=== PATIENT | female | born 1960 | race Caucasian/White ===

== ENCOUNTER 2017-01-19 09:23 | Outpatient (CLI) | payer OTHER ==
[2017-01-19 18:36] LABS: HEMOGLOBIN A1C 0.53 g/dL
[2017-01-19 18:42] LABS: ALBUMIN/GLOBULIN RATIO 1.3 (1.0-2.2); BILIRUBIN,TOTAL 0.4 mg/dL (0.2-1.0); BUN - BLOOD UREA NITROGEN 23 mg/dL (6-20); CALCIUM 9.5 mg/dL (8.5-10.3); CARBON DIOXIDE - CO2 29 mmol/L (21-32); CHLORIDE 101 mmol/L (101-111); CHOL/HDL RATIO 3.4 (<4.4); CHOLESTEROL 163 mg/dL; GFR - MDRD 57 (>89); GLUCOSE 91 mg/dL (70-100); HDL CHOLESTEROL 48 mg/dL; LDL/HDL RATIO 1.4 (<4.4); POTASSIUM 4.6 mmol/L (3.5-5.0); SODIUM 139 mmol/L (135-145); TOTAL PROTEIN 6.9 g/dL (6.7-8.2); TRIGLYCERIDES 239 mg/dL; VLDL CHOLESTEROL 48 mg/dL
== END 2017-01-19 09:24 | disposition home or self-care (01) ==
LOC: LAB.F 09:23
PROVIDERS: ATTEND Family Medicine
DX: D64.9 Anemia, unspecified (principal); E11.9 Type 2 diabetes mellitus without complications; E78.5 Hyperlipidemia, unspecified; I10 Essential (primary) hypertension
CPT/HCPCS: 36415; 80053; 80061; 82043; 83036

== ENCOUNTER 2017-03-03 10:21 | Outpatient (CLI) | payer OTHER ==
[2017-03-03 18:03] LABS: BASOPHILS # (AUTO) 0.1 10^3/uL (0.0-0.1); EOSINOPHILS # (AUTO) 0.3 10^3/uL (0.0-0.7); EOSINOPHILS % (AUTO) 3.2 %; HCT - HEMATOCRIT 36.2 % (37.0-47.0); HGB - HEMOGLOBIN 11.8 g/dL (12.0-16.0); IMMATURE RETIC FRACTION 0.48; LYMPHOCYTES # (AUTO) 3.1 10^3/uL (1.5-3.5); LYMPHOCYTES % (AUTO) 30.3 %; MEAN CORPUSCULAR HEMOGLOBIN 28.3 pg (27.0-31.0); MEAN CORPUSCULAR HGB CONC 32.7 g/dL (32.0-36.0); MEAN CORPUSCULAR VOLUME 86.7 fL (81.0-99.0); MONOCYTES # (AUTO) 0.7 10^3/uL (0.0-1.0); MONOCYTES % (AUTO) 7.2 %; NEUTROPHILS # (AUTO) 5.9 10^3/uL (1.5-6.6); NEUTROPHILS % (AUTO) 58.3 %; NUCLEATED RED BLOOD CELLS AUTO 0.2 /100WBC; RED BLOOD COUNT 4.17 10^6/uL (4.20-5.40); RED CELL DISTRIBUTION WIDTH 15.2 % (12.0-15.0); UNCORRECTED WHITE BLOOD COUNT 10.1 x10^3/uL; WHITE BLOOD COUNT 10.1 x10^3/uL (4.8-10.8)
[2017-03-03 18:38] LABS: IRON 43 ug/dL (28-170); TOTAL IRON BINDING CAPACITY 484 ug/dL (250-450); TRANSFERRIN 346 mg/dL (192-382)
[2017-03-03 18:54] LABS: FERRITIN 13.9 ng/mL (11.0-306.8)
== END 2017-03-03 10:22 | disposition home or self-care (01) ==
LOC: LAB.F 10:21
PROVIDERS: ATTEND Internal Medicine
DX: E11.9 Type 2 diabetes mellitus without complications (principal); D64.9 Anemia, unspecified
CPT/HCPCS: 36415; 82043; 82607; 82728; 82746; 83540; 84466; 85025; 85044

== ENCOUNTER 2017-06-30 08:58 | Outpatient (CLI) | payer OTHER ==
[2017-06-30 18:04] LABS: CALCIUM 9.6 mg/dL (8.5-10.3); CREATININE 1.2 mg/dL (0.4-1.0); POTASSIUM 4.2 mmol/L (3.5-5.0)
[2017-06-30 18:42] LABS: HEMOGLOBIN A1C 0.37 g/dL
== END 2017-06-30 08:59 | disposition home or self-care (01) ==
LOC: LAB.F 08:58
PROVIDERS: ATTEND Internal Medicine
DX: I10 Essential (primary) hypertension (principal); E11.9 Type 2 diabetes mellitus without complications; D50.8 Other iron deficiency anemias; K21.9 Gastro-esophageal reflux disease without esophagitis
CPT/HCPCS: 36415; 80048; 83036

== ENCOUNTER 2017-11-16 09:31 | Outpatient (CLI) | payer OTHER ==
[2017-11-16 17:31] LABS: ALBUMIN 4.5 g/dL (3.2-5.5); ALBUMIN/GLOBULIN RATIO 1.4 (1.0-2.2); ALKALINE PHOSPHATASE 44 IU/L (42-121); ALT ALANINE AMINOTRANSFERASE 23 IU/L (10-60); AST ASPARTATE AMINOTRANSFERASE 23 IU/L (10-42); BILIRUBIN,TOTAL 0.2 mg/dL (0.2-1.0); BUN - BLOOD UREA NITROGEN 31 mg/dL (6-20); CALCIUM 10.6 mg/dL (8.5-10.3); CARBON DIOXIDE - CO2 28 mmol/L (21-32); CHLORIDE 100 mmol/L (101-111); CHOL/HDL RATIO 3.3 (<4.4); CHOLESTEROL 152 mg/dL; CREATININE 1.2 mg/dL (0.4-1.0); GFR - MDRD 46 (>89); GLUCOSE 79 mg/dL (70-100); HDL CHOLESTEROL 46 mg/dL; LDL CHOLESTEROL,CALCULATED 63 mg/dL; LDL/HDL RATIO 1.4 (<4.4); SODIUM 138 mmol/L (135-145); TOTAL PROTEIN 7.7 g/dL (6.7-8.2); VLDL CHOLESTEROL 43 mg/dL
[2017-11-16 18:01] LABS: HEMOGLOBIN A1C 0.4 g/dL
== END 2017-11-16 09:32 | disposition home or self-care (01) ==
LOC: LAB.F 09:31
PROVIDERS: ATTEND Family Medicine
DX: E11.9 Type 2 diabetes mellitus without complications (principal); I10 Essential (primary) hypertension
CPT/HCPCS: 36415; 80053; 80061; 82043; 83036; 83721

== ENCOUNTER 2017-12-07 14:11 | Outpatient (CLI) | payer OTHER ==
--- NOTE | 2017-12-08 10:30 | DEXA Report ---
DEXA SCAN: 12/07/2017 CLINICAL INDICATION: Postmenopausal. TECHNIQUE: Dual energy x-ray absorptiometry (DXA) was performed on a [employer] system. Regions measured are the AP spine, femoral neck, and, if needed, forearm. COMPARISON: None. In accordance with the International Society for Clinical Densitometry (ISCD) guidelines, data from previous exams may be reanalyzed using current recommendations and techniques. This is done to allow a more accurate basis for comparison with the current study. FINDINGS: The data for the lumbar spine is as follows: REGION BMD (g/cm/cm) T-SCORE Z-SCORE L1 1.193 0.5 0.3 L2 1.260 0.5 0.3 L3 1.367 1.4 1.2 L4 1.320 1.0 0.8 TOTAL 1.287 0.9 0.7 NOTE: All evaluable vertebrae are used for classification. The data for the hip is as follows: REGION BMD (g/cm/cm) T-SCORE Z-SCORE Neck 0.857 -1.3 -1.0 TOTAL 0.945 -0.5 -0.6 NOTE: The femoral neck or total proximal femur, whichever is lowest, is used for classification. IMPRESSION: THE WHO CLASSIFICATION BASED ON THE INTERNATIONAL REFERENCE STANDARD IS OSTEOPENIA (REFERENCE LEFT FEMORAL NECK). THE FRACTURE RISK IS INCREASED. RECOMMENDATION: Patients with diagnosis of osteoporosis or osteopenia should have regular bone mineral density assessment. For those eligible for Medicare, routine testing is allowed once every 2 years. Testing frequency can be increased for patients who have rapidly progressing disease or for those who are receiving medical therapy to restore bone mass. COMMENT: World Health Organization (WHO) definitions for osteoporosis and osteopenia: NORMAL BMD: T-score at 1.0 or higher, fracture risk is low. OSTEOPENIA BMD: T-score between 1.0 and -2.5, fracture risk is increased. OSTEOPOROSIS BMD: T-score at 2.5 or lower, fracture risk high. National Osteoporosis Foundation recommends: 1. Obtain adequate dietary calcium (at least 1200 mg per day) and vitamin D (400 -800 international units per day). 2. Participate, as appropriate, in regular weightbearing and muscle- strengthening exercise. 3. Avoid tobacco use and reduce alcohol and caffeine intake. 4. For more detailed information see the website at www.NOF.org. MTDD
== END 2017-12-07 14:12 | disposition home or self-care (01) ==
LOC: DI 14:11
PROVIDERS: ATTEND Physician Assistant Medical
DX: M85.88 Other specified disorders of bone density and structure, other site (principal)
CPT/HCPCS: 77080

== ENCOUNTER 2018-02-17 09:36 | Outpatient (CLI) | payer OTHER ==
[2018-02-17 18:32] LABS: ALBUMIN 3.9 g/dL (3.2-5.5); ALBUMIN/GLOBULIN RATIO 1.1 (1.0-2.2); ALKALINE PHOSPHATASE 43 IU/L (42-121); ALT ALANINE AMINOTRANSFERASE 23 IU/L (10-60); AST ASPARTATE AMINOTRANSFERASE 23 IU/L (10-42); BILIRUBIN,TOTAL 0.6 mg/dL (0.2-1.0); BUN - BLOOD UREA NITROGEN 24 mg/dL (6-20); CALCIUM 10.1 mg/dL (8.5-10.3); CARBON DIOXIDE - CO2 29 mmol/L (21-32); CHLORIDE 100 mmol/L (101-111); GFR - MDRD 57 (>89); GLUCOSE 61 mg/dL (70-100); SODIUM 137 mmol/L (135-145); TOTAL PROTEIN 7.6 g/dL (6.7-8.2)
== END 2018-02-17 09:37 | disposition home or self-care (01) ==
LOC: LAB.F 09:36
PROVIDERS: ATTEND Physician Assistant Medical
DX: E83.52 Hypercalcemia (principal)
CPT/HCPCS: 36415; 80053; 84443

== ENCOUNTER 2018-05-26 09:58 | Outpatient (CLI) | payer OTHER ==
[2018-05-26 17:36] LABS: BASOPHILS # (AUTO) 0.1 10^3/uL (0.0-0.1); BASOPHILS % (AUTO) 1.1 %; EOSINOPHILS # (AUTO) 0.3 10^3/uL (0.0-0.7); EOSINOPHILS % (AUTO) 3.7 %; HGB - HEMOGLOBIN 11.9 g/dL (12.0-16.0); LYMPHOCYTES # (AUTO) 2.9 10^3/uL (1.5-3.5); MEAN CORPUSCULAR HEMOGLOBIN 30.6 pg (27.0-31.0); MEAN CORPUSCULAR HGB CONC 33.9 g/dL (32.0-36.0); MEAN CORPUSCULAR VOLUME 90.2 fL (81.0-99.0); MEAN PLATELET VOLUME 7.8 fL (7.9-10.8); MONOCYTES # (AUTO) 0.6 10^3/uL (0.0-1.0); MONOCYTES % (AUTO) 8.6 %; NEUTROPHILS # (AUTO) 3.4 10^3/uL (1.5-6.6); NEUTROPHILS % (AUTO) 46.6 %; PLT - PLATELET COUNT 349 10^3/uL (130-450); RED BLOOD COUNT 3.88 10^6/uL (4.20-5.40); RED CELL DISTRIBUTION WIDTH 14.5 % (12.0-15.0); WHITE BLOOD COUNT 7.2 x10^3/uL (4.8-10.8)
[2018-05-26 18:05] LABS: HB2 TOTAL 12.1 g/dL; HEMOGLOBIN A1C 0.39 g/dL; HEMOGLOBIN A1C % 5.1 % (4.6-6.2)
== END 2018-05-26 09:59 | disposition home or self-care (01) ==
LOC: LAB.F 09:58
PROVIDERS: ATTEND Physician Assistant Medical
DX: E11.9 Type 2 diabetes mellitus without complications (principal); Z51.81 Encounter for therapeutic drug level monitoring
CPT/HCPCS: 36415; 83036; 85025

== ENCOUNTER 2019-02-26 09:37 | Emergency (ER) | payer OTHER ==
[2019-02-26 09:51] VITALS: BP 189/93
--- NOTE | 2019-02-26 10:53 | XRAY Report ---
Reason: bruising pain Procedure Date: 02/26/2019 Accession Number: [id number] / [id number] Procedure: XR - Foot 3 View RT CPT Code: FULL RESULT: EXAM: RIGHT FOOT RADIOGRAPHY EXAM DATE: 02/26/2019 10:41 AM. CLINICAL HISTORY: Bruising pain. COMPARISON: None. TECHNIQUE: 3 views. FINDINGS: Bones: The bones are qualitatively osteopenic; this limits evaluation for underlying fractures or masses. There is deformity of the head of the fifth metatarsal metadiaphysis without acute fracture detected. There is a chronically nonhealed fracture at the base of the fifth metatarsal with suggestion of superimposed acute refracture at the base of the fifth metatarsal. There is a fracture at the base of the proximal fifth phalanx. There is a periosteal reaction of the third metatarsal diaphysis, possibly a subacute or chronic stress fracture. Joints: There is derangement of the midfoot bones with degenerative changes. Soft Tissues: Soft tissue swelling is seen at the first metatarsophalangeal articulation where calcific deposition and osseous destruction are suggestive of CPPD type disease. IMPRESSION: Acute fractures of the proximal fifth phalanx and base of the fifth metatarsal as well as subacute and chronic injuries as described above. RADIA
--- NOTE | 2019-02-26 12:10 | ED Physician Documentation ---
History of Present Illness - Stated complaint Stated Complaint: RT FOOT SWELLING/BRUISING - Chief complaint Chief Complaint: Ext Problem - History obtained from History obtained from: Patient - History of Present Illness Timing: Prior to arrival - Additonal information Additional information: Patient is a 59-year-old female presenting with right small toe pain after accidental injury just prior to arrival. Patient reports that she got startled and jumped backwards stepping awkwardly on the lateral aspect of her right foot. Patient did not fall the ground or suffer other injuries. Patient has broken her foot and this toe before. Patient reports pain, mild swelling, bruising, but no significant changes in sensation, strength, range of motion to the right lower extremity. Patient has no other complaints at this time. No other improving or worsening factors noted. Review of Systems Skin: reports: Other (Mild swelling and ecchymosis to lateral aspect of right foot along base of fifth toe) Musculoskeletal: reports: Extremity pain PD PAST MEDICAL HISTORY - Past Medical History Cardiovascular: Hypertension, High cholesterol Endocrine/Autoimmune: Type 2 diabetes - Past Surgical History Past Surgical History: No - Present Medications Home Medications: Ambulatory Orders Medication Instructions Recorded Confirmed Hydrocodone/Acetaminophen 1 - 2 each PO Q6H PRN #14 tablet 02/26/19 [Hydrocodon-Acetaminophen 5-325] - Allergies Allergies/Adverse Reactions: Allergies Allergy/AdvReac Type Severity Reaction Status Date / Time naproxen AdvReac Itching Verified 02/26/19 09:51 PD ED PE NORMAL - Vitals Vital signs reviewed: Yes - General General: Alert and oriented X 3, No acute distress, Well developed/nourished - Cardiac Cardiac: Strong equal pulses (Cap refill brisk) - Respiratory Respiratory: No respiratory distress - Derm Derm: Normal color (Mild swelling and ecchymosis to lateral aspect of right foot at base of fifth toe), Warm and dry, No rash - Extremities Extremities: No deformity. No: No tenderness to palpate (Tender at base ofRight fifth toe only. Remainder of right lower extremity within normal limits no deformities, bony tenderness, change in strength/sensation/range of motion) - Neuro Neuro: Alert and oriented X 3, No motor deficit, No sensory deficit - Psych Psych: Normal mood, Normal affect Results - Vitals Vitals: Vital Signs - 24 hr 02/26/19 09:49 Temperature 36.3 C L Heart Rate 99 Respiratory 18 Rate Blood Pressure 189/93 H O2 Saturation 97 Oxygen O2 Source Room air PD MEDICAL DECISION MAKING - ED course Complexity details: reviewed results, considered differential, d/w patient ED course: Presenting with mechanical injury to right foot, specifically right fifth toe. No other injury sustained. Feel that remainder of exam can be limited to right lower extremity. Do not find evidence of joint involvement, gout, infection, DVT or other complication. Do have concern for bony abnormalities, as well as musculoskeletal injury based on mechanism and physical exam. Plain films obtained which did find evidence of metatarsal and toe fractures. Discussed results recommendations with patient who is familiar with this injury. Discussed use of crutches, black boot, weightbearing status, pain medications, orthopedic surgery follow-up, and return precautions. Patient voiced understanding and is comfortable with discharge plan. Departure - Departure Disposition: 01 Home, Self Care Clinical Impression: Toe fracture, right Qualifiers: Encounter type: initial encounter Toe: lesser toe Fracture type: closed Phalanx: unspecified phalanx Fracture alignment: nondisplaced Qualified Code(s): S92.504A - Nondisplaced unspecified fracture of right lesser toe(s), initial encounter for closed fracture Instructions: ED Fx Foot Follow-Up: Shira Severino PA-C [Primary Care Provider] - Within 3 Days Eber Guido MD [Provider Admit Priv/Credential] - Within 3 Days Prescriptions: Hydrocodone/Acetaminophen [Hydrocodon-Acetaminophen 5-325] 1 - 2 each PO Q6H PRN #14 tablet PRN Reason: pain Comments: Recommend use of black boot, nonweightbearing status, crutches as instructed until follow-up with orthopedic surgery. Please contact primary care physician and orthopedic surgery in the next 1 to 2 days to set up follow-up appointment. Also recommend elevation, ice application, and ibuprofen/Tylenol. If using [place], do not combine with Tylenol, alcohol, or driving. If using [place] regularly, recommend use of stool softener or laxative to avoid constipation. Return to ED sooner if expands worsening symptoms, new injury, or other concerns.
== END 2019-02-26 13:05 | disposition home or self-care (01) ==
LOC: ED 09:37
DX: S92.514A Nondisplaced fracture of proximal phalanx of right lesser toe(s), initial encounter for closed fracture (principal); S92.354A Nondisplaced fracture of fifth metatarsal bone, right foot, initial encounter for closed fracture; X50.1XXA Overexertion from prolonged static or awkward postures, initial encounter; I10 Essential (primary) hypertension; E11.9 Type 2 diabetes mellitus without complications
CPT/HCPCS: 99283

== ENCOUNTER 2019-06-27 08:58 | Outpatient (CLI) | payer OTHER ==
[2019-06-27 17:48] LABS: HB2 TOTAL 12.7 g/dL; HEMOGLOBIN A1C 0.48 g/dL; HEMOGLOBIN A1C % 5.6 % (4.6-6.2)
[2019-06-27 18:01] LABS: ALBUMIN 4.3 g/dL (3.2-5.5); ALBUMIN/GLOBULIN RATIO 1.3 (1.0-2.2); ALKALINE PHOSPHATASE 45 IU/L (42-121); ALT ALANINE AMINOTRANSFERASE 23 IU/L (10-60); AST ASPARTATE AMINOTRANSFERASE 22 IU/L (10-42); BILIRUBIN,TOTAL 0.9 mg/dL (0.2-1.0); BUN - BLOOD UREA NITROGEN 25 mg/dL (6-20); CALCIUM 9.8 mg/dL (8.5-10.3); CARBON DIOXIDE - CO2 29 mmol/L (21-32); CHLORIDE 101 mmol/L (101-111); CHOL/HDL RATIO 3.7 (<4.4); CHOLESTEROL 194 mg/dL; CREATININE 0.9 mg/dL (0.4-1.0); GFR - MDRD 64 (>89); GLUCOSE 86 mg/dL (70-100); HDL CHOLESTEROL 53 mg/dL; LDL CHOLESTEROL,CALCULATED 81 mg/dL; LDL/HDL RATIO 1.5 (<4.4); SODIUM 139 mmol/L (135-145); TOTAL PROTEIN 7.5 g/dL (6.7-8.2); VLDL CHOLESTEROL 60 mg/dL
[2019-06-27 18:07] LABS: CREATININE,URINE 97.4 mg/dL; MICROALBUM/CREATININE RATIO,UR 146.8 ug/mg (<30.0); MICROALBUMIN,URINE 14.3 mg/dL (0-300.0)
== END 2019-06-27 08:59 | disposition home or self-care (01) ==
LOC: LAB.S 08:58
PROVIDERS: ATTEND Physician Assistant Medical
DX: E11.9 Type 2 diabetes mellitus without complications (principal); E78.5 Hyperlipidemia, unspecified
CPT/HCPCS: 36415; 80053; 80061; 82043; 82570; 83036; 83721

== ENCOUNTER 2020-07-18 08:56 | Outpatient (CLI) | payer BC ==
[2020-07-18 15:58] LABS: CREATININE,URINE 90.7 mg/dL; MICROALBUM/CREATININE RATIO,UR 130.1 ug/mg (<30.0); MICROALBUMIN,URINE 11.8 mg/dL (0-300.0)
[2020-07-18 16:00] LABS: ALBUMIN 4.1 g/dL (3.2-5.5); ALBUMIN/GLOBULIN RATIO 1.2 (1.0-2.2); ALKALINE PHOSPHATASE 43 IU/L (42-121); ALT ALANINE AMINOTRANSFERASE 33 IU/L (10-60); AST ASPARTATE AMINOTRANSFERASE 27 IU/L (10-42); BUN - BLOOD UREA NITROGEN 25 mg/dL (6-20); CALCIUM 10.3 mg/dL (8.5-10.3); CARBON DIOXIDE - CO2 28 mmol/L (21-32); CHLORIDE 100 mmol/L (101-111); CHOL/HDL RATIO 3.5 (<4.4); CHOLESTEROL 166 mg/dL; CREATININE 0.9 mg/dL (0.4-1.0); GLUCOSE 82 mg/dL (70-100); HDL CHOLESTEROL 48 mg/dL; LDL CHOLESTEROL,CALCULATED 70 mg/dL; LDL/HDL RATIO 1.5 (<4.4); SODIUM 138 mmol/L (135-145); TOTAL PROTEIN 7.4 g/dL (6.7-8.2); VLDL CHOLESTEROL 48 mg/dL
[2020-07-18 20:08] LABS: HEMOGLOBIN A1c% 5.8 % (4.27-6.07)
== END 2020-07-18 08:57 | disposition home or self-care (01) ==
LOC: LAB.S 08:56
PROVIDERS: ATTEND Physician Assistant
DX: E78.00 Pure hypercholesterolemia, unspecified (principal); E66.9 Obesity, unspecified; I10 Essential (primary) hypertension; E83.52 Hypercalcemia; E11.9 Type 2 diabetes mellitus without complications
CPT/HCPCS: 36415; 80053; 80061; 82043; 82570; 83036; 83721

== ENCOUNTER 2020-08-22 09:05 | Outpatient (CLI) | payer BC | END 2020-08-22 09:06 | disposition home or self-care (01) | LOC: DI 09:05 | PROVIDERS: ATTEND Physician Assistant | DX: I20.9 Angina pectoris, unspecified (principal); E78.5 Hyperlipidemia, unspecified; I10 Essential (primary) hypertension; E66.9 Obesity, unspecified; E11.9 Type 2 diabetes mellitus without complications; Z86.79 Personal history of other diseases of the circulatory system | CPT/HCPCS: 93306 ==

== ENCOUNTER 2020-09-08 08:44 | Outpatient (CLI) | payer BC ==
[2020-09-08] MEDS ORDERED: REGADENOSON 0.4 MG/5 ML SYRINGE IVP ONE ×2 (11:18→11:49)
[2020-09-08] MEDS ORDERED: AMINOPHYLLINE 500 MG/20 ML VIAL ONE (11:18)
--- NOTE | 2020-09-08 12:16 | CARDIAC PROCEDURE NOTE ---
DATE OF SERVICE: 09/08/2020 Physician: Tawnya Bob MD, [facility] INDICATION: CAD, angina, history of stroke. CARDIAC RISK FACTORS: Postmenopausal status, diabetes, morbid obesity, hypertension, hyperlipidemia, family history of heart disease. This patient has known CAD: she describes a 100% blockage with collateral flow found on coronary angiogram in 2008 (she did not know which vessel). PROCEDURE: After signing informed consent, the patient underwent a Lexiscan pharmaceutical stress test with nuclear myocardial perfusion imaging. RESTING HEART RATE: 101. PEAK HEART RATE: 122. RESTING BLOOD PRESSURE: 158/94. PEAK BLOOD PRESSURE: 179/94. Lexiscan was infused per protocol. The patient had flushing and mild shortness of breath, no chest pain. Oxygen saturation was 95% to 98% on room air throughout the test. RESTING EKG: Normal sinus rhythm, left atrial enlargement, left IVCD, RSR' in V1 and V2. EKG AT PEAK: [address] depressions are seen in leads II, III, aVF and V3 through V6. These returned to baseline after 4 minutes. SUMMARY: 1. Abnormal resting EKG. 2. ST-segment depressions developed with pharmacologic stress, consistent with ischemia. 3. Nuclear images reported separately and showed: Large, moderate-severe, partially reversible perfusion defect in the distal anterior wall and anterior septum. This is consistent with myocardial ischemia and infarction. IMPRESSION: Abnormal stress test. RECOMMENDATIONS 1. Cardiology referral. 2. More aggressive risk factor management. cc: Marleny Lyles PA-C TD: 09/08/2020 11:40 j HILARIA
--- NOTE | 2020-09-08 15:55 | Nuclear Medicine Report ---
PROCEDURE: Rest and Lexiscan stress myocardial perfusion SPECT with gated imaging and ejection fraction INDICATIONS: 240 LB/ANGINA, RT LEG WEAKNESS, HX OF STROKE, HX RADIOPHARMACEUTICAL: 18.2 mCi Tc-99m Myoview IV at rest and 51.6 mCi Tc-99m Myoview IV at peak exerc ise. Zrn-lsz-bcalinte was performed. TECHNIQUE: Radiopharmaceutical was injected at peak stress test, and also at rest. SPECT images wer e obtained. SPECT myocardial perfusion images were displayed in short axis, horizontal long axis, an d vertical long axis views. Gated images were reviewed using [employer] software. COMPARISON: None available. FINDINGS: Raw data: There is good myocardial labeling by radiotracer. No significant motion artifacts. Lung- to-heart ratio is 0.36 (normal is less than 0.38 for tetrafosmin tracer). Left ventricle function: Gated images demonstrate normal left ventricle wall thickening. No segment al wall motion abnormality. No transient ischemic dilation; TID is 0.97 (normal less than 1.3). The left ventricle resting end-diastolic volume is normal. Left ventricle stress ejection fraction is > 70%; normal values are above 45%. Myocardial perfusion: There is a large, rjkazlpn-xg-tczxlp, partially reversible perfusion defect in the distal anterior wall and anterior septum, consistent with myocardial ischemia. Breast attenuatio n and shifting breast artifacts are present in the anterior wall. IMPRESSION: 1. Probably abnormal myocardial perfusion images. There is a large, gzzovyti-bk-jgxowo, partially re versible perfusion defect in the anterior wall and anterior septum, consistent with myocardial ischem ia. Because of presence of breast attenuation and shifting breast artifact, the specificity of the te st is decreased. 2. Normal left ventricular volume and systolic function. 3. Please correlate with stress EKG result. PQRS ATTESTATIONS: Measure 322 - Is this imaging test primarily performed on a low-risk surgery patient for preoperative evaluation within 30 days preceding their low-risk non-cardiac surgery? Low-risk surgery is defined as cardiac or myocardial infarction less than 1%, including (but not limited to) endoscopic pr ocedures, superficial procedures, cataract surgery, and excisional breast surgery: Answer: No Measure 323 - Is this imaging test performed primarily for the monitoring of an asymptomatic patient who had percutaneous coronary intervention on the visit date or within 2 years of the visit date? An swer: No Measure 324 - Is this imaging test performed primarily for the initial detection and risk assessment on an asymptomatic, low coronary heart disease patient? Low CHD risk definition = clinicians should consider the maximum number of available patient factors used to estimate risk based on Vantage (A TP III criteria), typically age, gender, diabetes, smoking status, and use of blood pressure medicati on, and integrate age appropriate estimates for missing elements, such as LDL or standard blood press ure. Answer: No Reviewed by: Estefania Dorado MD on 09/08/2020 3:54 PM PST Approved by: Estefania Dorado MD on 09/08/2020 3:54 PM PST Station ID: [id number]
== END 2020-09-08 08:45 | disposition home or self-care (01) ==
LOC: DI 08:44
PROVIDERS: ATTEND Physician Assistant
DX: I25.119 Atherosclerotic heart disease of native coronary artery with unspecified angina pectoris (principal); R94.31 Abnormal electrocardiogram [ECG] [EKG]; I10 Essential (primary) hypertension; E78.00 Pure hypercholesterolemia, unspecified; R29.898 Other symptoms and signs involving the musculoskeletal system; E66.9 Obesity, unspecified; Z86.79 Personal history of other diseases of the circulatory system
CPT/HCPCS: 78452; 93017; A9500; J2785

== ENCOUNTER 2021-05-25 08:51 | Outpatient (CLI) | payer BC ==
[2021-05-25 14:12] LABS: ESTIMATED AVERAGE GLUCOSE 108 mg/dL (70-100); HEMOGLOBIN A1c% 5.4 % (4.27-6.07)
== END 2021-05-25 08:52 | disposition home or self-care (01) ==
LOC: LAB.S 08:51
PROVIDERS: ATTEND Physician Assistant
DX: E11.9 Type 2 diabetes mellitus without complications (principal)
CPT/HCPCS: 36415; 83036

== ENCOUNTER 2021-09-15 08:44 | Outpatient (CLI) | payer OTHER ==
[2021-09-15 15:03] LABS: BASOPHILS # (AUTO) 0.1 10^3/uL (0.0-0.1); BASOPHILS % (AUTO) 0.9 %; EOSINOPHILS # (AUTO) 0.3 10^3/uL (0.0-0.7); EOSINOPHILS % (AUTO) 3.5 %; HCT - HEMATOCRIT 37.8 % (37.0-47.0); HGB - HEMOGLOBIN 12.2 g/dL (12.0-16.0); LYMPHOCYTES # (AUTO) 2.7 10^3/uL (1.5-3.5); LYMPHOCYTES % (AUTO) 36.2 %; MEAN CORPUSCULAR HEMOGLOBIN 30.1 pg (27.0-31.0); MEAN CORPUSCULAR HGB CONC 32.3 g/dL (32.0-36.0); MEAN CORPUSCULAR VOLUME 93.3 fL (81.0-99.0); MONOCYTES # (AUTO) 0.7 10^3/uL (0.0-1.0); MONOCYTES % (AUTO) 9.8 %; NEUTROPHILS # (AUTO) 3.6 10^3/uL (1.5-6.6); NEUTROPHILS % (AUTO) 49.3 %; PLT - PLATELET COUNT 311 10^3/uL (130-450); RED BLOOD COUNT 4.05 10^6/uL (4.20-5.40); RED CELL DISTRIBUTION WIDTH 13.4 % (12.0-15.0); WHITE BLOOD COUNT 7.4 x10^3/uL (4.8-10.8)
[2021-09-15 15:23] LABS: ALBUMIN 3.9 g/dL (3.2-5.5); ALBUMIN/GLOBULIN RATIO 1.3 (1.0-2.2); ALKALINE PHOSPHATASE 44 IU/L (42-121); ALT ALANINE AMINOTRANSFERASE 22 IU/L (10-60); AST ASPARTATE AMINOTRANSFERASE 22 IU/L (10-42); BILIRUBIN,TOTAL 0.5 mg/dL (0.2-1.0); BUN - BLOOD UREA NITROGEN 31 mg/dL (6-20); CALCIUM 9.9 mg/dL (8.5-10.3); CARBON DIOXIDE - CO2 30 mmol/L (21-32); CHLORIDE 101 mmol/L (101-111); CHOL/HDL RATIO 4.1 (<4.4); CHOLESTEROL 172 mg/dL; CREATININE 0.9 mg/dL (0.4-1.0); GFR - MDRD 64 (>89); GLUCOSE 91 mg/dL (70-100); HDL CHOLESTEROL 42 mg/dL; LDL CHOLESTEROL,CALCULATED 89 mg/dL; LDL/HDL RATIO 2.1 (<4.4); POTASSIUM 4.1 mmol/L (3.5-5.0); SODIUM 140 mmol/L (135-145); TRIGLYCERIDES 205 mg/dL; VLDL CHOLESTEROL 41 mg/dL
[2021-09-15 15:29] LABS: THYROID STIMULATING HORMONE 1.11 uIU/mL (0.34-5.60)
[2021-09-15 15:33] LABS: CREATININE,URINE 134.4 mg/dL; MICROALBUM/CREATININE RATIO,UR 71.4 ug/mg (<30.0); MICROALBUMIN,URINE 9.6 mg/dL (0-300.0)
[2021-09-15 18:48] LABS: ESTIMATED AVERAGE GLUCOSE 114 mg/dL (70-100); HEMOGLOBIN A1c% 5.6 % (4.27-6.07)
== END 2021-09-15 08:45 | disposition home or self-care (01) ==
LOC: LAB.S 08:44
PROVIDERS: ATTEND Internal Medicine
DX: I25.10 Atherosclerotic heart disease of native coronary artery without angina pectoris (principal); E78.5 Hyperlipidemia, unspecified; E83.52 Hypercalcemia; E78.00 Pure hypercholesterolemia, unspecified; E66.9 Obesity, unspecified; E11.9 Type 2 diabetes mellitus without complications; I10 Essential (primary) hypertension; Z86.79 Personal history of other diseases of the circulatory system
CPT/HCPCS: 36415; 80053; 80061; 82043; 82570; 83036; 83721; 84153; 84443; 85025

== ENCOUNTER 2022-08-03 08:59 | Outpatient (CLI) | payer OTHER ==
[2022-08-03 15:06] LABS: ALBUMIN 4.1 g/dL (3.2-5.5); ALBUMIN/GLOBULIN RATIO 1.1 (1.0-2.2); BILIRUBIN,TOTAL 0.6 mg/dL (0.2-1.0); CALCIUM 10.4 mg/dL (8.5-10.3); CREATININE 1.1 mg/dL (0.4-1.0); POTASSIUM 4.5 mmol/L (3.5-5.0); TOTAL PROTEIN 7.9 g/dL (6.7-8.2)
[2022-08-03 20:56] LABS: ESTIMATED AVERAGE GLUCOSE 186 mg/dL (70-100); HEMOGLOBIN A1c% 8.1 % (4.27-6.07)
== END 2022-08-03 09:00 | disposition home or self-care (01) ==
LOC: LAB.S 08:59
PROVIDERS: ATTEND Registered Nurse
DX: E11.9 Type 2 diabetes mellitus without complications (principal)
CPT/HCPCS: 36415; 80053; 83036

== ENCOUNTER 2022-12-27 08:41 | Outpatient (CLI) | payer OTHER ==
[2022-12-27 14:46] LABS: BASOPHILS # (AUTO) 0.1 10^3/uL (0.0-0.1); BASOPHILS % (AUTO) 0.9 %; EOSINOPHILS # (AUTO) 0.3 10^3/uL (0.0-0.7); EOSINOPHILS % (AUTO) 2.7 %; HCT - HEMATOCRIT 41.7 % (37.0-47.0); HGB - HEMOGLOBIN 13.3 g/dL (12.0-16.0); LYMPHOCYTES % (AUTO) 32.5 %; MEAN CORPUSCULAR HGB CONC 31.9 g/dL (32.0-36.0); MEAN CORPUSCULAR VOLUME 97.2 fL (81.0-99.0); MONOCYTES # (AUTO) 0.8 10^3/uL (0.0-1.0); MONOCYTES % (AUTO) 8.6 %; NEUTROPHILS % (AUTO) 54.9 %; PLT - PLATELET COUNT 332 10^3/uL (130-450); RED BLOOD COUNT 4.29 10^6/uL (4.20-5.40); RED CELL DISTRIBUTION WIDTH 13.5 % (12.0-15.0); WHITE BLOOD COUNT 9.2 x10^3/uL (4.8-10.8)
[2022-12-27 15:27] LABS: ALBUMIN 4.1 g/dL (3.2-5.5); ALBUMIN/GLOBULIN RATIO 1.4 (1.0-2.2); ALKALINE PHOSPHATASE 52 IU/L (42-121); ALT ALANINE AMINOTRANSFERASE 30 IU/L (10-60); AST ASPARTATE AMINOTRANSFERASE 27 IU/L (10-42); BILIRUBIN,TOTAL 0.7 mg/dL (0.2-1.0); BUN - BLOOD UREA NITROGEN 33 mg/dL (6-20); CALCIUM 10.2 mg/dL (8.5-10.3); CARBON DIOXIDE - CO2 31 mmol/L (21-32); CHLORIDE 101 mmol/L (101-111); CHOL/HDL RATIO 4.1 (<4.4); CHOLESTEROL 179 mg/dL; GFR - MDRD 56 (>89); GLUCOSE 149 mg/dL (70-100); HDL CHOLESTEROL 44 mg/dL; LDL CHOLESTEROL,CALCULATED 85 mg/dL; LDL/HDL RATIO 1.9 (<4.4); POTASSIUM 4.4 mmol/L (3.5-5.0); SODIUM 138 mmol/L (135-145); TOTAL PROTEIN 7.1 g/dL (6.7-8.2); TRIGLYCERIDES 248 mg/dL; VLDL CHOLESTEROL 50 mg/dL
[2022-12-27 15:34] LABS: THYROID STIMULATING HORMONE 1.34 uIU/mL (0.34-5.60)
[2022-12-27 21:20] LABS: ESTIMATED AVERAGE GLUCOSE 148 mg/dL (70-100); HEMOGLOBIN A1c% 6.8 % (4.27-6.07)
== END 2022-12-27 08:42 | disposition home or self-care (01) ==
LOC: LAB.S 08:41
PROVIDERS: ATTEND Registered Nurse
DX: E78.00 Pure hypercholesterolemia, unspecified (principal); Z79.899 Other long term (current) drug therapy; E11.9 Type 2 diabetes mellitus without complications; Z13.29 Encounter for screening for other suspected endocrine disorder
CPT/HCPCS: 36415; 80053; 80061; 83036; 83721; 84443; 85025

== ENCOUNTER 2023-03-28 08:52 | Outpatient (CLI) | payer OTHER ==
[2023-03-28 17:11] LABS: CALCIUM 10.3 mg/dL (8.5-10.3); CREATININE 1.1 mg/dL (0.4-1.0); POTASSIUM 4.3 mmol/L (3.5-5.0)
[2023-03-28 20:33] LABS: ESTIMATED AVERAGE GLUCOSE 143 mg/dL (70-100); HEMOGLOBIN A1c% 6.6 % (4.27-6.07)
== END 2023-03-28 08:53 | disposition home or self-care (01) ==
LOC: LAB.S 08:52
PROVIDERS: ATTEND Registered Nurse
DX: E11.9 Type 2 diabetes mellitus without complications (principal)
CPT/HCPCS: 36415; 80048; 83036

== ENCOUNTER 2023-05-09 08:00 | Outpatient (CLI) | payer OTHER ==
--- NOTE | 2023-05-09 14:50 | XRAY Report ---
PROCEDURE: Foot 3 View RT INDICATIONS: RIGHT FOOT PAIN TECHNIQUE: 3 views of the foot were acquired. COMPARISON: 02/26/2019 FINDINGS: Bones: There is an acute transverse fracture across the first distal phalanx. Minimal comminution. N o significant displacement. There is healed deformity of remote third and fifth metatarsal fracture a t the midshaft and neck respectively, and healing at the fifth metatarsal base. Chronic moderate firs t MTP hallux valgus. Soft tissues: No suspicious soft tissue calcifications or masses. IMPRESSION: 1. Acute first distal phalanx fracture. 2. Healed fractures of the third and fifth metatarsals. 3. Chronic first MTP hallux valgus. Reviewed by: Krissy Davis MD on 05/09/2023 2:48 PM PDT Approved by: Krissy Davis MD on 05/09/2023 2:48 PM PDT Station ID: [id number]
== END 2023-05-09 23:59 | disposition home or self-care (01) ==
LOC: DI.S 08:00
PROVIDERS: ATTEND Physician Assistant
DX: S92.421A Displaced fracture of distal phalanx of right great toe, initial encounter for closed fracture (principal); S92.501D Displaced unspecified fracture of right lesser toe(s), subsequent encounter for fracture with routine healing; M20.11 Hallux valgus (acquired), right foot; E11.9 Type 2 diabetes mellitus without complications
CPT/HCPCS: 36415; 80048; 83036

== ENCOUNTER 2023-05-09 09:10 | Outpatient (CLI) | payer OTHER ==
[2023-05-09 15:34] LABS: CALCIUM 10.3 mg/dL (8.5-10.3); CREATININE 1.2 mg/dL (0.6-1.3); POTASSIUM 4.6 mmol/L (3.5-4.5)
[2023-05-09 21:13] LABS: ESTIMATED AVERAGE GLUCOSE 151 mg/dL (70-100); HEMOGLOBIN A1c% 6.9 % (4.27-6.07)
== END 2023-05-09 09:11 | disposition home or self-care (01) ==
LOC: LAB.S 09:10
PROVIDERS: ATTEND Registered Nurse
DX: E11.9 Type 2 diabetes mellitus without complications (principal)
CPT/HCPCS: 36415; 80048; 83036

== ENCOUNTER 2023-06-15 09:22 | Outpatient (CLI) | payer OTHER ==
[2023-06-15 15:07] LABS: CREATININE,URINE 25.5 mg/dL; MICROALBUM/CREATININE RATIO,UR 419.6 ug/mg (<30.0); MICROALBUMIN,URINE 10.7 mg/dL
== END 2023-06-15 09:23 | disposition home or self-care (01) ==
LOC: LAB.S 09:22
PROVIDERS: ATTEND Registered Nurse
DX: N18.30 Chronic kidney disease, stage 3 unspecified (principal)
CPT/HCPCS: 82043; 82570

== ENCOUNTER 2023-06-20 08:00 | Outpatient (CLI) | payer OTHER ==
--- NOTE | 2023-06-20 16:53 | XRAY Report ---
PROCEDURE: Foot 3 View RT INDICATIONS: RIGHT FOOT PAIN TECHNIQUE: 3 views of the foot were acquired. COMPARISON: Radiographs 05/09/2023. FINDINGS: Bones: Minimally displaced transverse fracture of the first distal phalanx with minimal comminution. No suspicious bony lesions. Moderate hallux valgus. Pes planus. Moderate degenerative changes of th e first metatarsophalangeal joint pain. Scattered degenerative changes throughout the interphalangeal joints of the toes. Degenerative spurring is seen at the dorsal aspect of the talonavicular joints. Chronic healed fracture deformity of the distal fifth metatarsal. Healed third metatarsal shaft fract ure appears less prominent. Plantar calcaneal enthesophyte. Soft tissues: Soft tissue edema is seen in the great toe. IMPRESSION: 1.First distal phalangeal fracture is redemonstrated with unchanged alignment. 2.Moderate hallux valgus and moderate first metatarsophalangeal osteoarthrosis. Scattered degenerativ e changes throughout the midfoot and forefoot. 3.Pes planus. Reviewed by: Damian Acevedo MD on 06/20/2023 4:52 PM PDT Approved by: Damian Aceevdo MD on 06/20/2023 4:52 PM PDT Station ID: [id number]
== END 2023-06-20 23:59 | disposition home or self-care (01) ==
LOC: DI.WOS 08:00
PROVIDERS: ATTEND Physician Assistant Surgical
DX: S92.421A Displaced fracture of distal phalanx of right great toe, initial encounter for closed fracture (principal); M19.071 Primary osteoarthritis, right ankle and foot; M20.11 Hallux valgus (acquired), right foot; M21.41 Flat foot [pes planus] (acquired), right foot

== ENCOUNTER 2023-07-18 08:00 | Outpatient (CLI) | payer OTHER ==
--- NOTE | 2023-07-18 14:36 | XRAY Report ---
PROCEDURE: Toe(s) RT INDICATIONS: RIGHT GREAT TOE FRACTURE TECHNIQUE: 3 views of the right great toe(s) acquired. COMPARISON: 06/20/2023 FINDINGS: Bones: Transverse lucent fracture plane across the first distal phalanx head is redemonstrated. There is trace stable sclerosis and no significant callus formation compared to prior. Fracture fragment i s relatively stable size. Moderate first MTP hallux valgus and degenerative joint space loss. Deformi ty of the fifth metatarsal is again noted. Hammertoe deformity 2 through 4. No new fractures. Soft tissues: No suspicious soft tissue densities. IMPRESSION: 1. Stable position of right distal phalanx fracture fragments without significant callus formation. Reviewed by: Krissy Davis MD on 07/18/2023 2:35 PM PST Approved by: Krissy Davis MD on 07/18/2023 2:35 PM PST Station ID: [id number]
== END 2023-07-18 23:59 | disposition home or self-care (01) ==
LOC: DI.WOS 08:00
PROVIDERS: ATTEND Physician Assistant Surgical
DX: S92.421D Displaced fracture of distal phalanx of right great toe, subsequent encounter for fracture with routine healing (principal)

== ENCOUNTER 2023-09-07 11:22 | Outpatient (CLI) | payer OTHER ==
--- NOTE | 2023-09-08 08:27 | Mammography Report ---
BILATERAL DIGITAL SCREENING MAMMOGRAM 3D/2D: 09/07/2023 CLINICAL: Routine screening. Comparison is made to exams dated: 06/01/2013 mammogram and 07/29/2011 mammogram - [facility]. There are scattered areas of fibroglandular density in both breasts (category b / 25%-50% glandular t issue). There is a benign focal asymmetry in the left breast. There also are benign calcifications in both b reasts. No significant masses, calcifications, or other findings are seen in either breast. There has been no significant interval change. IMPRESSION: BENIGN There is no mammographic evidence of malignancy. A 1 year screening mammogram is recommended. Based on the Tyrer Cuzick model (a risk assessment model) the patients lifetime risk is 11.8% and he r 10 year risk is 5.2%. According to the ACR, ACS, and NCCN guidelines, an annual breast MRI exam ashok ng with mammogram is recommended if the patients lifetime risk is 20% or greater. This exam was interpreted at Station ID: [id number]. NOTE: For mammograms, a report in lay terms will be sent to the patient. Approximately 15% of breast malignancies will not be visualized mammographically. In the management of a palpable breast mass, a negative mammogram must not discourage biopsy of a clinically suspicious lesion. Electronically Signed By: Damian parra/laila:09/07/2023 13:41:13 letter sent: No_Letter ACR BI-RADS Category 2: Benign Finding(s) 3342F PARENCHYMAL PATTERN: (A) - The breast(s) demonstrate(s) scattered fibroglandular densities. BI-RADS CATEGORY: (2) - 2 Mammogram [id number] 1 year screening LATERALITY: (B)
== END 2023-09-07 11:23 | disposition home or self-care (01) ==
LOC: DI 11:22
PROVIDERS: ATTEND Registered Nurse
DX: Z12.31 Encounter for screening mammogram for malignant neoplasm of breast (principal); R92.323 Mammographic fibroglandular density, bilateral breasts

== ENCOUNTER 2023-09-22 08:45 | Outpatient (CLI) | payer OTHER ==
[2023-09-22 14:53] LABS: BASOPHILS # (AUTO) 0.1 10^3/uL (0.0-0.1); BASOPHILS % (AUTO) 0.8 %; EOSINOPHILS # (AUTO) 0.3 10^3/uL (0.0-0.7); EOSINOPHILS % (AUTO) 3.9 %; HCT - HEMATOCRIT 40.9 % (37.0-47.0); HGB - HEMOGLOBIN 12.7 g/dL (12.0-16.0); MEAN CORPUSCULAR HEMOGLOBIN 29.7 pg (27.0-31.0); MEAN CORPUSCULAR HGB CONC 31.1 g/dL (32.0-36.0); MEAN CORPUSCULAR VOLUME 95.8 fL (81.0-99.0); MEAN PLATELET VOLUME 10.1 fL (7.9-10.8); MONOCYTES # (AUTO) 0.7 10^3/uL (0.0-1.0); MONOCYTES % (AUTO) 8.4 %; NEUTROPHILS # (AUTO) 4.5 10^3/uL (1.5-6.6); NEUTROPHILS % (AUTO) 51.6 %; PLT - PLATELET COUNT 342 10^3/uL (130-450); RED BLOOD COUNT 4.27 10^6/uL (4.20-5.40); RED CELL DISTRIBUTION WIDTH 13.3 % (12.0-15.0); WHITE BLOOD COUNT 8.7 x10^3/uL (4.8-10.8)
[2023-09-22 15:26] LABS: ALBUMIN 4.2 g/dL (3.2-5.5); ALBUMIN/GLOBULIN RATIO 1.4 (1.0-2.2); ALKALINE PHOSPHATASE 46 IU/L (42-121); ALT ALANINE AMINOTRANSFERASE 26 IU/L (10-60); AST ASPARTATE AMINOTRANSFERASE 24 IU/L (10-42); BILIRUBIN,TOTAL 0.4 mg/dL (0.2-1.0); BUN - BLOOD UREA NITROGEN 34 mg/dL (6-20); CALCIUM 10.4 mg/dL (8.5-10.3); CARBON DIOXIDE - CO2 32 mmol/L (21-32); CHLORIDE 101 mmol/L (101-111); CHOL/HDL RATIO 3.9 (<4.4); CHOLESTEROL 181 mg/dL; CREATININE 1.1 mg/dL (0.6-1.3); GFR - MDRD 50 (>89); GLUCOSE 105 mg/dL (74-104); HDL CHOLESTEROL 46 mg/dL; LDL CHOLESTEROL,CALCULATED 74 mg/dL; LDL/HDL RATIO 1.6 (<4.4); POTASSIUM 4.2 mmol/L (3.5-4.5); SODIUM 139 mmol/L (135-145); TOTAL PROTEIN 7.1 g/dL (6.4-8.9); TRIGLYCERIDES 307 mg/dL (48-352); VLDL CHOLESTEROL 61 mg/dL
[2023-09-22 20:15] LABS: ESTIMATED AVERAGE GLUCOSE 160 mg/dL (70-100); HEMOGLOBIN A1c% 7.2 % (4.27-6.07)
== END 2023-09-22 08:46 | disposition home or self-care (01) ==
LOC: LAB.S 08:45
PROVIDERS: ATTEND Registered Nurse
DX: E11.9 Type 2 diabetes mellitus without complications (principal); Z13.228 Encounter for screening for other metabolic disorders; Z13.220 Encounter for screening for lipoid disorders; Z13.29 Encounter for screening for other suspected endocrine disorder; Z13.0 Encounter for screening for diseases of the blood and blood-forming organs and certain disorders involving the immune mechanism
CPT/HCPCS: 36415; 80053; 80061; 83036; 83721; 84443; 85025

== ENCOUNTER 2023-10-17 09:47 | Outpatient (CLI) | payer OTHER ==
--- NOTE | 2023-10-17 12:02 | DEXA Report ---
PROCEDURE: Dexa Spine and/or Hip INDICATIONS: POST MENOPAUSAL TECHNIQUE: Dual energy x-ray absorptiometry (DXA) was performed on a [employer] MOBILE System. Regions measur ed are the AP Spine, femoral neck, and if needed forearm. COMPARISON: DEXA, 11/29/2017 FINDINGS: Lumbar Spine: Bone Mineral Density: 1.270 g/cm/cm,T score: 0.8. Left Femoral Neck: Bone Mineral Density: 0.830 g/cm/cm, T score: -1.5. Left Hip: Bone Mineral Density: 0.972 g/cm/cm,T score: -0.3. (T score greater or equal to -1.0: NORMAL) (T score from -1.1 to -2.4: OSTEOPENIA) (T score less than or equal to -2.5 to: OSTEOPOROSIS) Compared with the last exam dated 11/29/2017, the patient's bone density in lumbar spine and left hip are not significantly changed by statistical analysis. Impression: By WHO criteria, this patient has osteopenia. Compared with the last exam, there is no significant ch arlyn. Patients with diagnosis of osteoporosis or osteopenia should have regular bone mineral density assess ment. For those eligible for Medicare, routine testing is allowed once every 2 years. Testing frequ ency can be increased for patients who have rapidly progressing disease or for those who are receivin g medical therapy to restore bone mass. Reviewed by: Estefania Dorado MD on 10/17/2023 12:00 PM PST Approved by: Estefania Dorado MD on 10/17/2023 12:00 PM PST Station ID: [id number]
== END 2023-10-17 09:48 | disposition home or self-care (01) ==
LOC: DI 09:47
PROVIDERS: ATTEND Registered Nurse
DX: Z78.0 Asymptomatic menopausal state (principal); M85.88 Other specified disorders of bone density and structure, other site

== ENCOUNTER 2023-10-27 11:16 | Outpatient (CLI) | payer OTHER ==
[2023-10-27 11:52] LABS: BASOPHILS # (AUTO) 0.1 10^3/uL (0.0-0.1); BASOPHILS % (AUTO) 0.7 %; EOSINOPHILS # (AUTO) 0.2 10^3/uL (0.0-0.7); EOSINOPHILS % (AUTO) 2.8 %; HCT - HEMATOCRIT 39.8 % (37.0-47.0); HGB - HEMOGLOBIN 12.5 g/dL (12.0-16.0); LYMPHOCYTES # (AUTO) 3.3 10^3/uL (1.5-3.5); LYMPHOCYTES % (AUTO) 37.9 %; MEAN CORPUSCULAR HEMOGLOBIN 29.8 pg (27.0-31.0); MEAN CORPUSCULAR HGB CONC 31.4 g/dL (32.0-36.0); MEAN PLATELET VOLUME 9.3 fL (7.9-10.8); MONOCYTES # (AUTO) 0.7 10^3/uL (0.0-1.0); NEUTROPHILS # (AUTO) 4.4 10^3/uL (1.5-6.6); NEUTROPHILS % (AUTO) 50.1 %; PLT - PLATELET COUNT 302 10^3/uL (130-450); RED BLOOD COUNT 4.19 10^6/uL (4.20-5.40); RED CELL DISTRIBUTION WIDTH 13.1 % (12.0-15.0); WHITE BLOOD COUNT 8.7 x10^3/uL (4.8-10.8)
[2023-10-27 12:00] LABS: CREATININE,URINE 39.6 mg/dL; MICROALBUM/CREATININE RATIO,UR 426.8 ug/mg (<30.0); MICROALBUMIN,URINE 16.9 mg/dL
[2023-10-27 12:17] LABS: ALBUMIN 4.2 g/dL (3.2-5.5); ALBUMIN/GLOBULIN RATIO 1.5 (1.0-2.2); ALKALINE PHOSPHATASE 49 IU/L (42-121); ALT ALANINE AMINOTRANSFERASE 27 IU/L (10-60); AST ASPARTATE AMINOTRANSFERASE 23 IU/L (10-42); BILIRUBIN,TOTAL 0.4 mg/dL (0.2-1.0); BUN - BLOOD UREA NITROGEN 18 mg/dL (6-20); CALCIUM 10.4 mg/dL (8.5-10.3); CARBON DIOXIDE - CO2 32 mmol/L (21-32); CHLORIDE 103 mmol/L (101-111); CHOL/HDL RATIO 3.3 (<4.4); CHOLESTEROL 157 mg/dL; GFR - MDRD 56 (>89); GLUCOSE 90 mg/dL (74-104); HDL CHOLESTEROL 48 mg/dL; LDL CHOLESTEROL,CALCULATED 70 mg/dL; LDL/HDL RATIO 1.5 (<4.4); MAGNESIUM 1.5 mg/dL (1.7-2.3); PHOSPHORUS 3.2 mg/dL (2.5-5.0); POTASSIUM 4.1 mmol/L (3.5-4.5); SODIUM 139 mmol/L (135-145); TRIGLYCERIDES 196 mg/dL (48-352); URIC ACID 6.5 mg/dL (2.3-6.6); VLDL CHOLESTEROL 39 mg/dL
[2023-10-27 12:57] LABS: ESTIMATED AVERAGE GLUCOSE 157 mg/dL (70-100); HEMOGLOBIN A1c% 7.1 % (4.27-6.07)
[2023-10-31 15:08] LABS: A/G RATIO 1.2 (0.7-1.7); ALBUMIN 3.5 g/dL (2.9-4.4); ALPHA-1-GLOBULIN 0.2 g/dL (0.0-0.4); GAMMA GLOBULIN 0.8 g/dL (0.4-1.8); GLOBULIN, TOTAL 2.9 g/dL (2.2-3.9); PROTEIN TOTAL 6.4 g/dL (6.0-8.5)
== END 2023-10-27 11:17 | disposition home or self-care (01) ==
LOC: LAB 11:16
PROVIDERS: ATTEND Internal Medicine Nephrology
DX: N18.31 Chronic kidney disease, stage 3a (principal)
CPT/HCPCS: 36415; 80053; 80061; 81599; 82043; 82570; 82610; 83036; 83721; 83735; 83970; 84100; 84155; 84156; 84165; 84166; 84550; 85025

== ENCOUNTER 2024-02-24 09:21 | Outpatient (CLI) | payer OTHER ==
[2024-02-24 09:44] LABS: ALBUMIN 4.4 g/dL (3.2-5.5); ALBUMIN/GLOBULIN RATIO 1.5 (1.0-2.2); BILIRUBIN,TOTAL 0.7 mg/dL (0.2-1.0); CALCIUM 10.9 mg/dL (8.5-10.3); CREATININE 1.1 mg/dL (0.6-1.3); POTASSIUM 4.7 mmol/L (3.5-4.5); TOTAL PROTEIN 7.4 g/dL (6.4-8.9)
[2024-02-24 09:52] LABS: CREATININE,URINE 31.8 mg/dL; MICROALBUM/CREATININE RATIO,UR 330.2 ug/mg (<30.0); MICROALBUMIN,URINE 10.5 mg/dL
== END 2024-02-24 09:22 | disposition home or self-care (01) ==
LOC: LAB 09:21
PROVIDERS: ATTEND Internal Medicine Nephrology
DX: N18.31 Chronic kidney disease, stage 3a (principal)
CPT/HCPCS: 36415; 80053; 82043; 82570

== ENCOUNTER 2024-04-26 09:18 | Outpatient (CLI) | payer OTHER ==
[2024-04-26 09:46] LABS: ALBUMIN 4.1 g/dL (3.2-5.5); ALBUMIN/GLOBULIN RATIO 1.6 (1.0-2.2); BILIRUBIN,TOTAL 0.5 mg/dL (0.2-1.0); CALCIUM 10.1 mg/dL (8.5-10.3); CREATININE 1.2 mg/dL (0.6-1.3); POTASSIUM 4.5 mmol/L (3.5-4.5); TOTAL PROTEIN 6.6 g/dL (6.4-8.9)
[2024-04-26 10:16] LABS: ESTIMATED AVERAGE GLUCOSE 128 mg/dL (70-100); HEMOGLOBIN A1c% 6.1 % (4.27-6.07)
== END 2024-04-26 09:19 | disposition home or self-care (01) ==
LOC: LAB 09:18
PROVIDERS: ATTEND Internal Medicine Nephrology
DX: N18.31 Chronic kidney disease, stage 3a (principal)
CPT/HCPCS: 36415; 80053; 83036